=== PATIENT | female | born 1970 | race African-American/Black ===

== ENCOUNTER 2017-12-11 12:07 | Observation (INO) | payer MEDICAID, OTHER ==
[~2017-12-11] VITALS: Ht 172.7 cm; Wt 72.6 kg
[2017-12-11 15:03] VITALS: BP 151/75
[2017-12-11 16:00] LABS: Mean Corpuscular Hemoglobin 39.3 pg (28.0-32.0); White Blood Cell 7.2 10^3/uL (4.4-10.8)
[2017-12-11 16:02] LABS: Hematocrit 14.1 % (36.0-46.0); Mean Corpuscular Hgb Conc. 35.9 g/dL (32.0-36.0); Mean Corpuscular Volume 109.6 fL (80.0-100.0); Platelet Count (auto) 240 10^3/uL (140-450); Red Blood Cells 1.29 10^6/uL (4.0-5.20)
[2017-12-11 16:17] LABS: Red Cell Distribution Width 25.6 % (11.8-14.3)
[2017-12-11 16:18] LABS: Albumin 1.3 g/dL (3.4-5.0); Bilirubin, Total 0.5 mg/dL (0.2-1.0); Calcium 6.7 mg/dL (8.5-10.1); Hemoglobin 5.1 g/dL (12.2-16.2); Potassium 4.3 mmol/L (3.5-5.1); Total Protein 5.7 g/dL (6.4-8.2)
[2017-12-11 16:19] LABS: Band Neutrophils % (manual) 0; Basophils % (manual) 0 (0.0-2.0); Blast Cells 0; Promyelocytes % 0; Reactive Lymphocytes 0
[2017-12-11] MEDS ORDERED: SODIUM CHLORIDE 0.9% 1,000 ML IVB ONE (16:24)
[2017-12-11 16:56] LABS: Eosinophils % (manual) 4 (0-7); Lymphocytes % (manual) 25 (10.0-50.0); Metamyelocytes % 3; Monocytes % (manual) 3 (0-12); Myelocytes % 1
[2017-12-11 17:26] LABS: INR 0.97 (0.9-1.15); Partial Thromboplastin Time 26.1 sec (22.64-33.71); Prothrombin Time 10.6 sec (9.37-12.3)
[2017-12-11 17:34] LABS: Urine Bacteria FEW /hpf (None Seen); Urine Blood 1+ /uL (Negative); Urine Specific Gravity 1.012 (1.001-1.035); Urine WBC 47 /hpf (0 - 5)
[2017-12-11] MEDS ORDERED: HALOPERIDOL LACTATE 5 MG/ML INJ VIAL IM ONE (17:45)
[2017-12-11] MEDS ORDERED: diphenhdrAMINE HCL 50 MG/1 ML VL IV ONE (17:45)
[2017-12-11] MEDS ORDERED: LORazepam 2MG/ML-1ML VIAL IV ONE (17:45)
== END 2017-12-11 18:03 | disposition left against medical advice (07) | DRG 663 ==
LOC: EDBD 12:07 → ER 12:07 → OVERFLOW 16:26 → ER 18:03
PROVIDERS: ADMIT Family Medicine; ATTEND Family Medicine
DX: D64.9 Anemia, unspecified (principal); E83.42 Hypomagnesemia; N18.3 Chronic kidney disease, stage 3 (moderate); F25.9 Schizoaffective disorder, unspecified; Z59.0 Homelessness; Z82.49 Family history of ischemic heart disease and other diseases of the circulatory system
CPT/HCPCS: 36415; 80053; 81001; 81025; 82150; 83690; 83735; 85007; 85027; 85610; 85730; 99285; G0378; J1200; J1630; J2060